=== PATIENT | female | born 1965 | race Caucasian/White ===

== ENCOUNTER 2018-09-20 13:24 | Day surgery (SDC) | payer OTHER ==
--- NOTE | 2018-09-19 08:43 | GHP ---
[f rep st] PREOP HISTORY AND PHYSICAL DATE OF ADMISSION: 09/20/2018 DISCHARGE DIAGNOSIS: Ureteral calculus. HISTORY: This is a lady who has had ureteral calculi with intermittent pain, and she has had unexpla ined nausea and vomiting recently. She had a CAT scan done on September 12, which demonstrated 2 sto perez in the distal right ureter measuring 6.2, 6.57 mm respectively, and a 1.1 cm stone present in the right kidney, and then small left calculi of 2 mm. She has not had prior metabolic workup. She had previous stone disease. PAST HISTORY: Significant for hematuria, hydronephrosis, and nephrolithiasis. PAST SURGICAL HISTORY: None. MEDICATIONS: Have been related to the stone. ALLERGIES: None. FAMILY HISTORY: Noncontributory. SOCIAL HISTORY: Nonsmoker, nondrinker. REVIEW OF SYSTEMS: Negative cardiac, respiratory, GI, and endocrine, and in the office on 09/14/2018 , her blood pressure was 146/100, BMI 24.69, O2 saturation on room air 16, heart rate 71 and regular, respirations 16. PHYSICAL EXAM: She communicates through an fisher dip net. HEENT: Head, ears, eyes, nose, throat norm al. CHEST: Clear. HEART: Regular rate and rhythm. ABDOMEN: Normal no organomegaly, rebound, or guarding. LOWER EXTREMITIES: Normal. Her urinalysis on that visit showed positive nitrite and +3 blood, +1 leukocytes, and she has had a u rine culture on 09/15/2018, that final result showed no growth. At the present time, she is admitted for the right ureteroscopy and treatment of her ureteral calculi, and possibly her renal calculi. /[id number]/MODL
[2018-09-20] MEDS ORDERED: ceFAZolin 2 GM/DEXTROSE 100 ML IV ONE (13:40)
[2018-09-20] MEDS ORDERED: LR 1,000 ML IV ONE (13:42)
[2018-09-20] MEDS ORDERED: IOPAMIDOL (ISOVUE-M 300) 15 ML VIAL ONE (14:52)
[2018-09-20] MEDS ORDERED: LIDOCAINE 2% JELLY 20 ML (UROJECT) ONE (14:52)
[2018-09-20] MEDS ORDERED: PROPOFOL/EMULSION 500 MG/50 ML BOTTLE IV ONE (15:20)
[2018-09-20] MEDS ORDERED: fentaNYL 100 MCG/2 ML INJ ONE (15:26)
--- NOTE | 2018-09-20 15:34 | PDHPUP ---
History & Physical Update H&P update statement: This history and physical update is based on an assessment of the patient which was completed after admission or registration (within 24 hours), but prior to the surgery/procedure. H&P update: H&P reviewed & patient examined, no change in patient's condition since H&P completed
[2018-09-20] MEDS ORDERED: MIDAZOLAM 2 MG/2 ML VIAL ONE (15:35)
[2018-09-20] MEDS ORDERED: HYDROmorphONE/DILAUDID 2 MG/ML INJ IVP PRN (16:29)
[2018-09-20] MEDS ORDERED: LABETALOL HCL 5 MG/ML 20 ML MDV IVP PRN (16:29)
[2018-09-20] MEDS ORDERED: PROMETHAZINE HCL 25 MG/ML INJ IVP PRN (16:29)
[2018-09-20] MEDS ORDERED: fentaNYL 100 MCG/2 ML INJ IVP PRN (16:29)
[2018-09-20] MEDS ORDERED: ONDANSETRON 4 MG/2 ML VIAL IVP PRN (16:29)
[2018-09-20] MEDS ORDERED: NALOXONE HCL 0.4 MG/ML INJ IVP PRN (16:29)
--- NOTE | 2018-09-20 16:33 | PDANEPAE ---
ANE History of Present Illness Healthy 53 y/o woman for r ureteroscopy for stone. ANE Past Medical History - Cardiovascular History Hx Hypertension: No Hx Arrhythmias: No Hx Chest Pain: No Hx Coronary Artery / Peripheral Vascular Disease: No Hx CHF / Valvular Disease: No Hx Palpitations: No - Pulmonary History Hx COPD: No Hx Asthma/Reactive Airway Disease: No Hx Recent Upper Respiratory Infection: No Hx Oxygen in Use at Home: No Hx Sleep Apnea: No - Neurologic History Hx Cerebrovascular Accident: No Hx Seizures: No Hx Dementia: No - Endocrine History Hx Diabetes: No - Renal History Hx Renal Disorders: Yes Renal History Comment: KIDNEY STONES - Liver History Hx Hepatic Disorders: No - Neurological & Psychiatric Hx Hx Neurological and Psychiatric Disorders: No - Cancer History Hx Cancer: No - Congenital Disorder History Hx Congenital Disorders: No - GI History Hx Gastrointestinal Disorders: No - Other Health History Other Health History: HEMATURIA. HYDRONEPHROSIS. NEPHROLITHIASIS - Chronic Pain History Chronic Pain: No - Surgical History Prior Surgeries: HYSTERECTOMY. . "GLAND FROM THROAT AREA" ANE Review of Systems Review of systems is: negative Review of Systems: - Exercise capacity METS (RN): 4 METS ANE Patient History - Allergies Allergies/Adverse Reactions: No Known Drug Allergies Allergy (Verified 09/20/18 11:21) - Home Medications Home Medications: Tamsulosin HCl 09/20/18 [Last Taken 1 Week Ago ~09/13/18] Zofran 09/20/18 [Last Taken 1 Week Ago ~09/13/18] oxyCODONE IR 09/20/18 [Last Taken 1 Week Ago ~09/13/18] - NPO status NPO Since - Liquids (Date): 09/19/18 NPO Since - Liquids (Time): 20:00 NPO Since - Solids (Date): 09/19/18 NPO Since - Solids (Time): 20:00 - Smoking Hx Smoking Status: Never smoked - Family Anes Hx Family Hx Anesthesia Complications: NONE. ANE Labs/Vital Signs - Vital Signs Blood Pressure: 153/97 Heart Rate: 74 Respiratory Rate: 18 O2 Sat (%): 95 Height: 167.64 cm Weight: 69.4 kg ANE Physical Exam - Airway Neck exam: FROM Mallampati Score: Class 1 Mouth exam: normal dental/mouth exam - Pulmonary Pulmonary: no respiratory distress - Cardiovascular Cardiovascular: regular rate and rhythym - ASA Status ASA Status: I ANE Anesthesia Plan Anesthesia Plan: GA w LMA
--- NOTE | 2018-09-20 16:51 | POSTOPPROG ---
Post Op Note Date of Operation: 09/20/18 (DICTATED) Surgeon: Rommel Machado Anesthesia: LMA Pre-op Diagnosis: rt ureteral stone Post-op Diagnosis: same Procedure: ureteroscopy / stent Inf/Abcess present in the surg proc area at time of surgery?: No EBL: Minimal
--- NOTE | 2018-09-20 16:53 | POSTANESTH ---
Post Anesthetic Evaluation Cardiovascular Status: Normal, Stable Respiratory Status: Normal, Stable Level of Consciousness/Mental Status: Mildly Sleepy, Arousable Pain Control: Adequate, Prn Tx Ordered Nausea/Vomiting Control: Adequate, Prn Tx Ordered Complications Possibly Related to Anesthesia: None Noted
[2018-09-20 17:13] VITALS: BP 144/96
--- NOTE | 2018-09-21 05:10 | GOP ---
[f rep st] OPERATIVE REPORT DATE OF OPERATION: SURGEON: Rommel Machado MD PREOPERATIVE DIAGNOSIS: Right ureterolithiasis, right nephrolithiasis. POSTOPERATIVE DIAGNOSIS: Right ureterolithiasis, right nephrolithiasis. PROCEDURE PERFORMED: Cystoscopy, retrograde ureteral pyelogram, dilation of the ureter, attempted st one laser, and placement of ureteral stent under fluoroscopic control. FINDINGS: DESCRIPTION OF PROCEDURE: This lady underwent general anesthesia, was prepped and draped in normal s terile fashion. After appropriate time-out, her urethra was entered, and she had a retrograde that r evealed several impacted distal ureteral stones and a renal stone. Fluoroscopy with retrograde revea led that some contrast could get into the ureter beyond the stones. At that point, with some manipul ation, I was able to eventually get the combination of the Lester catheter and the guidewire beyond the stones, and after getting the Lester catheter above the stones and drained some of the urine, th ere was no purulent material noted behind the stones. At that point, I was able to pass the inside w orking element of the ureteral access sheath up the ureter and with a semi-rigid scope, went up to wh ere the stones were, and they were impacted. I tried to laser and dislodged some of the stones, and really was not possible to get all the stones because of the impaction. At that point, with the amou nt of irritation and impaction of the stones, I elected to place a 4.7 multi-length stent that curled in the renal pelvis, curled in the bladder, and the plans will be to bring her back in 7-14 days to, at that point, go through the ureter after some of the edema and swelling is gone and try to remove the ureteral stones, and at that point, if possible, may try to end up removing the renal stone with ureteroscopic laser procedure. I looked for her postoperatively to discuss the issues with allyssa willett, and he was not available. I will try to contact the recovery room when they get the supervising editor trailer s o I can talk to him on the phone about the issue. I did have some small fragments of stone sent for analysis and stent in place. After the stent was placed, I emptied her bladder and put the Uro-Jet i n the urethra for local anesthesia, and she will be discharged home as noted. /[id number]/MODL
== END 2018-09-20 18:30 | disposition home or self-care (01) ==
LOC: FSGY 13:24
PROVIDERS: ATTEND Specialist
DX: N20.2 Calculus of kidney with calculus of ureter (principal); Z87.442 Personal history of urinary calculi
CPT/HCPCS: 52356; C1758; C1769; C1894; 82365-90; C2625; J0690; J2250; J2704; J3010; Q9967

== ENCOUNTER 2018-10-02 11:44 | Day surgery (SDC) | payer OTHER ==
[2018-10-02] MEDS ORDERED: LR 1,000 ML IV ONE (12:16)
[2018-10-02] MEDS ORDERED: ceFAZolin 2 GM/DEXTROSE 100 ML IV ONE (12:32)
--- NOTE | 2018-10-02 12:38 | GHP ---
[f rep st] PREOP HISTORY AND PHYSICAL DATE OF ADMISSION: 10/02/2018 This is a lady who has had right ureteral calculi and right renal stone and attempted ureteroscopy pe rformed and because of the dense inflammatory reaction, was unable to do it, so I placed a stent. Donell hyde is admitted now as an outpatient for removal of the distal ureteral stones and possible treatment o f 1.1 cm right renal stone. Indication and complications discussed. Written and verbal consent were obtained. She is admitted for the above procedure. FAMILY HISTORY: Denies family history. SOCIAL HISTORY: Nonsmoker. REVIEW OF SYSTEMS: Negative for cardiac, respiratory, GI, and endocrine. PHYSICAL EXAMINATION: VITAL SIGNS: Stable. CHEST: Clear. HEART: Regular rate and rhythm. ABDOM EN: Normal. No organomegaly, rebound, or guarding. LOWER EXTREMITIES: Normal. She is admitted for the above procedure. /[id number]/MODL
[2018-10-02] MEDS ORDERED: NS 500 ML IV PRN (13:17)
[2018-10-02] MEDS ORDERED: DEXAMETHASONE 4 MG/ML VIAL IVP PRN (13:17)
[2018-10-02] MEDS ORDERED: NALOXONE HCL 0.4 MG/ML INJ IVP PRN (13:17)
[2018-10-02] MEDS ORDERED: MIDAZOLAM 2 MG/2 ML VIAL IVP ONE (13:17)
[2018-10-02] MEDS ORDERED: ONDANSETRON 4 MG/2 ML VIAL IVP PRN (13:17)
[2018-10-02] MEDS ORDERED: fentaNYL 100 MCG/2 ML INJ IVP PRN (13:17)
[2018-10-02] MEDS ORDERED: fentaNYL 100 MCG/2 ML INJ ONE (13:30)
--- NOTE | 2018-10-02 13:34 | PDANEPAE ---
ANE History of Present Illness here for ureteroscopy ANE Past Medical History - Cardiovascular History Hx Hypertension: No Hx Arrhythmias: No Hx Chest Pain: No Hx Coronary Artery / Peripheral Vascular Disease: No Hx CHF / Valvular Disease: No Hx Palpitations: No - Pulmonary History Hx COPD: No Hx Asthma/Reactive Airway Disease: No Hx Recent Upper Respiratory Infection: No Hx Oxygen in Use at Home: No Hx Sleep Apnea: No Sleep Apnea Screening Result - Last Documented: Negative - Neurologic History Hx Cerebrovascular Accident: No Hx Seizures: No Hx Dementia: No - Endocrine History Hx Diabetes: No - Renal History Hx Renal Disorders: Yes Renal History Comment: KIDNEY STONES - Liver History Hx Hepatic Disorders: No - Neurological & Psychiatric Hx Hx Neurological and Psychiatric Disorders: No - Cancer History Hx Cancer: No - Congenital Disorder History Hx Congenital Disorders: No - GI History Hx Gastrointestinal Disorders: No - Other Health History Other Health History: HEMATURIA. HYDRONEPHROSIS. NEPHROLITHIASIS - Chronic Pain History Chronic Pain: No - Surgical History Prior Surgeries: URETEROSCOPY W/STENT R. HYSTERECTOMY. . "GLAND FROM THROAT AREA" ANE Review of Systems Review of systems is: negative Review of Systems: - Exercise capacity Exercise capacity: >=4 METS METS (RN): 4 METS ANE Patient History - Allergies Allergies/Adverse Reactions: No Known Drug Allergies Allergy (Verified 09/20/18 11:21) - Home Medications Home medications: home medication list seen and reviewed Home Medications: Tamsulosin HCl 09/20/18 [Last Taken 09/30/18] - NPO status NPO Status: no food or drink >8 hours NPO Since - Liquids (Date): 10/01/18 NPO Since - Liquids (Time): 22:00 NPO Since - Solids (Date): 10/01/18 NPO Since - Solids (Time): 20:00 - Smoking Hx Smoking Status: Never smoked - Family Anes Hx Family Hx Anesthesia Complications: NONE. ANE Labs/Vital Signs - Vital Signs Vital Signs: reviewed preoperatively; see RN documention for details Blood Pressure: 126/94 Heart Rate: 78 Respiratory Rate: 16 O2 Sat (%): 98 Height: 167.64 cm Weight: 69.4 kg ANE Physical Exam - Airway Neck exam: FROM Mallampati Score: Class 1 Mouth exam: normal dental/mouth exam - Pulmonary Pulmonary: no respiratory distress - Cardiovascular Cardiovascular: regular rate and rhythym - ASA Status ASA Status: II ANE Anesthesia Plan Anesthesia Plan: GA w LMA
[2018-10-02] MEDS ORDERED: PROPOFOL/EMULSION 500 MG/50 ML BOTTLE IV ONE (13:36)
[2018-10-02] MEDS ORDERED: IOPAMIDOL (ISOVUE-M 300) 15 ML VIAL ONE (14:08)
[2018-10-02] MEDS ORDERED: DEXAMETHASONE 4 MG/ML VIAL ONE (14:12)
[2018-10-02] MEDS ORDERED: ePHEDrine SULFATE 25 MG/5 ML SYR ONE (14:36)
[2018-10-02] MEDS ORDERED: LIDOCAINE 2% JELLY 20 ML (UROJECT) ONE (15:00)
--- NOTE | 2018-10-02 15:12 | POSTOPPROG ---
Post Op Note Date of Operation: 10/02/18 (dictated) Surgeon: Rommel Machado Anesthesia: LMA Pre-op Diagnosis: rt ureterolithiasis , rt nephrolithiasis Procedure: ureteroscopy stone laser, stent, fluoroscopy Inf/Abcess present in the surg proc area at time of surgery?: No EBL: Minimal Drains: Other (stent)
--- NOTE | 2018-10-02 15:22 | POSTANESTH ---
Post Anesthetic Evaluation Cardiovascular Status: Normal, Stable Respiratory Status: Normal, Stable Level of Consciousness/Mental Status: Moderately Sleepy Pain Control: Adequate, Prn Tx Ordered Nausea/Vomiting Control: Adequate, Prn Tx Ordered Complications Possibly Related to Anesthesia: None Noted
--- NOTE | 2018-10-02 15:24 | GOP ---
[f rep st] OPERATIVE REPORT DATE OF OPERATION: 10/02/2018 SURGEON: Rommel Machado MD ANESTHESIA: General. PREOPERATIVE DIAGNOSIS: Right ureteral calculus, impacted. POSTOPERATIVE DIAGNOSIS: Right ureteral calculus, impacted. PROCEDURE PERFORMED: Cystoscopy, retrograde ureteral pyelogram and ureteral dilation, holmium laser lithotripsy, extraction of stones, and placement of ureteral stent under fluoroscopy. FINDINGS: ESTIMATED BLOOD LOSS: Less than 10 mL. Uro-Jet was placed in the urethra after I emptied her bladder. DESCRIPTION OF PROCEDURE: The lady underwent general anesthesia, prepped and draped in normal steril e fashion. After appropriate time-out, cystoscopy was done and the right ureteral stent was grasped and I passed a guidewire up there, curled it into the renal pelvis, and then attempted to dilate the ureter again, as I had previously done and it was not possible to pass the ureteral access sheath up, so at that point, I passed a 2nd wire, passed the scope under direct vision through the ureter, narr owed by site, and busted the stone up with the Holmium laser at 434 joules and then extracted the fra gments. I did try to pass the ureteral access sheath up again and that was not possible, but it acco mmodated the scope well, so I elected not to pursue that further. I did pass a 4.7 multi-length sten t that curled in the renal pelvis, curled in the bladder. She has renal stones, so I think will need to undergo a lithotripsy for those because I was concerned forcing a ureteral access sheath up would be inappropriate and then if we fragmented the stones and could not get them out, then we may be und ergoing this procedure again. She will be discharged home with a stent and then I will try to arrang e for her to have extracorporeal shockwave lithotripsy in the future. Specimen sent for analysis. COMPLICATIONS: None. /[id number]/MODL
[2018-10-02 16:43] VITALS: BP 125/91
== END 2018-10-02 17:02 | disposition home or self-care (01) ==
LOC: FSGY 11:44
PROVIDERS: ATTEND Specialist
PROC: 0T768DZ Dilation of Right Ureter with Intraluminal Device, Via Natural or Artificial Opening Endoscopic (ICD-10-PCS; principal; 2018-10-02 13:30)
PROC: 0TC68ZZ Extirpation of Matter from Right Ureter, Via Natural or Artificial Opening Endoscopic (ICD-10-PCS; principal; 2018-10-02 13:30)
DX: N20.1 Calculus of ureter (principal)
CPT/HCPCS: 52356; C1758; C1769; C1894; C2625; J0690; J1100; J2250; J2704; J3010; Q9967

== ENCOUNTER 2018-10-23 05:33 | Day surgery (SDC) | payer OTHER ==
--- NOTE | 2018-10-22 17:59 | GHP ---
[f rep st] PREOP HISTORY AND PHYSICAL DATE OF ADMISSION: 10/23/2018 ADMISSION DIAGNOSIS: Right ureterovesical junction stone with hydronephrosis. HISTORY OF PRESENT ILLNESS: This is a 53-year-old lady who has had 2 previous procedures recently fo r ureteral stones. In the first she had an impacted distal ureteral stone that was not able to total ly obliterate, and so we took her back and was able to remove the stone. She had some renal stones t hat were 1 cm x 0.7 cm in the kidney, and the plans were to eventually have her undergo lithotripsy, but subsequent to the last treatment on 10/16/2017, she developed a right hydronephrosis and ureterol ithiasis with a 12 mm x 7 mm distal ureteral stone. She has had previously 2 lithotripsy procedures as well as ureteroscopies. At the present time she is admitted for a right ureteroscopy, stone attem pted removal and indications, complications discussed. Written and verbal consent were obtained, and she is admitted for the above procedure. PAST HISTORY: Positive for kidney stones and treatments. She has had cystoscopy, stent removal, ure teroscopy, laser lithotripsy. MEDICATIONS: Ondansetron. ALLERGIES: None. FAMILY HISTORY: Noncontributory. SOCIAL HISTORY: Nondrinker, nonsmoker. REVIEW OF SYSTEMS: CARDIAC: Negative. RESPIRATORY: Negative. GI: Negative. ENDOCRINE: Negativ e. PHYSICAL EXAMINATION: VITAL SIGNS: Stable. CHEST: Clear. HEART: Regular rate and rhythm. ABDOM EN: Normal. No organomegaly, rebound or guarding. LOWER EXTREMITIES: Normal. At the present time she is admitted for the right ureteroscopic manipulation of the large distal uret eral stone. /[id number]/MODL
[2018-10-23] MEDS ORDERED: ceFAZolin 2 GM/DEXTROSE 100 ML IV ONE (05:51)
[2018-10-23] MEDS ORDERED: LR 1,000 ML IV ONE (05:54)
[2018-10-23] MEDS ORDERED: LIDOCAINE 1% 2 ML INJ ID PRN (05:54)
[2018-10-23] MEDS ORDERED: LIDOCAINE 1% 2 ML INJ ONE (05:57)
--- NOTE | 2018-10-23 06:51 | PDANEPAE ---
ANE Past Medical History - Cardiovascular History Hx Hypertension: No Hx Arrhythmias: No Hx Chest Pain: No Hx Coronary Artery / Peripheral Vascular Disease: No Hx CHF / Valvular Disease: No Hx Palpitations: No - Pulmonary History Hx COPD: No Hx Asthma/Reactive Airway Disease: No Hx Recent Upper Respiratory Infection: No Hx Oxygen in Use at Home: No Hx Sleep Apnea: No Sleep Apnea Screening Result - Last Documented: Negative - Neurologic History Hx Cerebrovascular Accident: No Hx Seizures: No Hx Dementia: No - Endocrine History Hx Diabetes: No - Renal History Hx Renal Disorders: Yes Renal History Comment: kidney stones. HEMATURIA. HYDRONEPHROSIS. NEPHROLITHIASIS - Liver History Hx Hepatic Disorders: No - Neurological & Psychiatric Hx Hx Neurological and Psychiatric Disorders: No - Cancer History Hx Cancer: No - Congenital Disorder History Hx Congenital Disorders: No - GI History Hx Gastrointestinal Disorders: No - Other Health History Other Health History: wears glasses - Chronic Pain History Chronic Pain: No - Surgical History Prior Surgeries: 10/02/18 right ureteroscopy with stent with Carter. 09/20/18 right ureteroscopy with stent with Carter. HYSTERECTOMY. . "GLAND FROM THROAT AREA" ANE Review of Systems Review of Systems: - Exercise capacity METS (RN): 4 METS ANE Patient History - Allergies Allergies/Adverse Reactions: No Known Drug Allergies Allergy (Verified 10/22/18 15:00) - Home Medications Home medications: home medication list seen and reviewed Home Medications: Oxycodone HCl PRN 10/22/18 [Last Taken 10/22/18 14:00] - NPO status NPO Since - Liquids (Date): 10/22/18 NPO Since - Liquids (Time): 20:00 NPO Since - Solids (Date): 10/22/18 NPO Since - Solids (Time): 19:00 - Anes Hx Anes Hx: no prior problems - Smoking Hx Smoking Status: Never smoked - Family Anes Hx Family Hx Anesthesia Complications: none ANE Labs/Vital Signs - Vital Signs Vital Signs: reviewed preoperatively; see RN documention for details Blood Pressure: 140/98 Heart Rate: 79 Respiratory Rate: 16 O2 Sat (%): 95 Height: 167.64 cm Weight: 69.4 kg ANE Physical Exam - Airway Neck exam: FROM - ASA Status ASA Status: II ANE Anesthesia Plan Anesthesia Plan: GA w LMA
[2018-10-23] MEDS ORDERED: MIDAZOLAM 2 MG/2 ML VIAL IVP ONE (06:59)
[2018-10-23] MEDS ORDERED: LIDOCAINE 2% JELLY 20 ML (UROJECT) ONE (07:03)
[2018-10-23] MEDS ORDERED: IOPAMIDOL (ISOVUE-M 300) 15 ML VIAL ONE (07:03)
[2018-10-23] MEDS ORDERED: fentaNYL 100 MCG/2 ML INJ ONE (07:04)
[2018-10-23] MEDS ORDERED: PROPOFOL 200 MG/20 ML VIAL ONE (07:04)
--- NOTE | 2018-10-23 07:39 | POSTOPPROG ---
Post Op Note Date of Operation: 10/23/18 (dictated) Surgeon: Rommel Machado Anesthesia: LMA Pre-op Diagnosis: rt stone ureter, hydronephrosis, nephrolithiasis Indication: stone / hydroneprhosis Procedure: ureteroscopy, laser of ureteral stone and 5 renal stones, stent, fluoroscop Inf/Abcess present in the surg proc area at time of surgery?: No EBL: Minimal Drains: Other (stent) Specimen(s): sent
[2018-10-23] MEDS ORDERED: DEXAMETHASONE 4 MG/ML VIAL ONE (07:54)
[2018-10-23] MEDS ORDERED: METOCLOPRAMIDE 10 MG/2 ML VIAL ONE (07:54)
[2018-10-23] MEDS ORDERED: PHENYLEPHRINE HCL 100 MCG/ML SYR ONE (08:20)
[2018-10-23] MEDS ORDERED: PROMETHAZINE HCL 25 MG/ML INJ IVP PRN (08:46)
[2018-10-23] MEDS ORDERED: ONDANSETRON 4 MG/2 ML VIAL IVP PRN (08:46)
[2018-10-23] MEDS ORDERED: oxyCODONE IR 5 MG TAB PO PRN (08:46)
[2018-10-23] MEDS ORDERED: DIAZEPAM 5 MG/ML 1 ML SYR IVP PRN (08:46)
[2018-10-23] MEDS ORDERED: NALOXONE HCL 0.4 MG/ML INJ IVP PRN (08:46)
[2018-10-23] MEDS ORDERED: MEPERIDINE 25 MG/0.5 ML AMP IVP PRN (08:46)
[2018-10-23] MEDS ORDERED: fentaNYL 100 MCG/2 ML INJ IVP PRN (08:46)
[2018-10-23] MEDS ORDERED: LR 500 ML IV PRN (08:46)
[2018-10-23] MEDS ORDERED: ACETAMINOPHEN 500 MG TAB PO PRN (08:46)
[2018-10-23] MEDS ORDERED: HYDROmorphONE/DILAUDID 2 MG/ML INJ IVP PRN (08:46)
--- NOTE | 2018-10-23 09:20 | POSTANESTH ---
Post Anesthetic Evaluation Cardiovascular Status: Normal, Stable Respiratory Status: Normal, Stable Level of Consciousness/Mental Status: Can Participate in Eval Pain Control: Adequate, Prn Tx Ordered Nausea/Vomiting Control: Adequate, Prn Tx Ordered Complications Possibly Related to Anesthesia: None Noted
[2018-10-23 09:46] VITALS: BP 123/94
--- NOTE | 2018-10-23 11:16 | GOP ---
[f rep st] OPERATIVE REPORT DATE OF OPERATION: 10/23/2018 SURGEON: Rommel Machado MD PREOPERATIVE DIAGNOSIS: Ureterolithiasis, hydronephrosis and nephrolithiasis. POSTOPERATIVE DIAGNOSIS: Ureterolithiasis, hydronephrosis and nephrolithiasis. PROCEDURE PERFORMED: Cystoscopy, retrograde ureteral pyelogram, dilation of intramural ureter, urete roscopy with stone fragmentation of distal ureter, extraction of stones and then nephroscopy, and fra gment of 5 intrarenal stones and then placement of ureteral stent. FINDINGS: SPECIMENS: Stone sent for assessment. ESTIMATED BLOOD LOSS: Minimal. DESCRIPTION OF PROCEDURE: The lady underwent general anesthesia, prepped and draped in normal steril e fashion in dorsal lithotomy position. Urethra was normal. Bladder had no tumor, stones, foreign b odies, or diverticula. The right ureteral orifice was cannulated with a Wilson catheter and reveale d she had distal ureteral calculus. Able to pass a guidewire beyond that stone and dilated the intra mural ureter with the inner lumen of a flexor ureteral access sheath, 12-Ind[place]ian and then was able to pass the semi-rigid scope up to identify 2 stones that were fragmented and extracted. She had edema of the ureter, but there is no perforation or residual stones in the distal ureter. At that point, I was able to take a disposable [employer] flexible ureteroscope passed over a guidewire into t he renal pelvis and she had 5 stones that were adhered to the calices/papillae and each one of the st ones were fragmented to the size that was the size of the 200 micron fiber for the laser, and at the end of the procedure, there was no significant stone burden of size. With multiple stones and previo us history of ureteral stenosis, I elected not to try to extract all the stones, but at that point, p laced a 4.7 multi-length stent that curled in the renal pelvis, curled in the bladder and she will be discharged home with that. I will discuss the findings with her family. I would recommend she get a KUB prior to removal of the stent in 10 days. COMPLICATIONS: None /[id number]/MODL
== END 2018-10-23 09:45 | disposition home or self-care (01) ==
LOC: FSGY 05:33
PROVIDERS: ATTEND Specialist
DX: N13.2 Hydronephrosis with renal and ureteral calculous obstruction (principal); Z87.442 Personal history of urinary calculi
CPT/HCPCS: 82365-90; C1758; C1769; C1894; C2625; J0690; J1100; J2250; J2370; J2704; J2765; J3010; Q9967